=== PATIENT | female | born 1950 | race Caucasian/White ===

== ENCOUNTER 2025-07-03 09:46 | Outpatient (CLI) | payer MEDICARE, BC ==
--- NOTE | 2025-07-03 17:26 | CARDIOLOGY REPORT ---
APPROVED REPORT EXAM: Comprehensive 2D, Doppler, and color-flow Echocardiogram. Patient Location: OUT-PATIENT Blood Pressure: 116 /66 mmHg Heart Rate: 68 bpm Rhythm: SINUS Indications CONGETIVE HEART FAILURE Hospice Care Consultant: NONE Previous echo: NONE 2D Dimensions RVDd 2.7 cm LA Minor 3.8 cm LVOT Diameter 1.90 (1.8-2.4cm) Ao Asc Diam. 3.21 cm M-Mode Dimensions Left Atrium(MM) 3.72 (2.5-4.0cm) IVSd 0.75 (0.7-1.1cm) LVDd 4.36 (4.0-5.6cm) Aortic Root 2.81 (2.2-3.7cm) PWd 0.70 (0.7-1.1cm) Aortic Cusp Exc 1.73 (1.5-2.0cm) IVSs 1.52 cm MV EPSS 0.3 (<0.5cm) LVDs 2.60 (2.0-3.8cm) FS (%) 40 % PWs 1.24 cm ESV(Teich) 24.6 ml LVEF(%) 71 (>50%) Aortic Valve AoV Peak Italo. 145.3 cm/s AoV VTI 30.9 cm AO Peak GR. 8.0 mmHg AO Mean GR. 5 mmHg LVOT VTI 23.76 cm LVOT Peak Italo. 112.3 cm/s BARBARA (VMAX) 2.20 cm2 BARBARA (VTI) 2.18 cm2 Mitral Valve MV E Velocity 82.9 cm/s MV DECEL TIME 162 ms MV A Velocity 103.1 cm/s MV PHT 67 ms E/A Ratio 0.8 MVA (PHT) 3.30 cm2 TDI E/Medial E' 8.8 Tricuspid Valve TR P. Velocity 215 cm/s RAP ESTIMATE 10 mmHg TR Peak Gr. 19 mmHg RVSP 29 mmHg Pulmonary Vein S2 Velocity 55.38 cm/s PVa Duration 83 msec LEFT VENTRICLE Normal LV size and wall thickness. Overall systolic function is normal. Overall LVEF is 65-70%. GLS - 20.1%. RIGHT VENTRICLE RV is normal size and function. ATRIA The left atrium size is normal. AORTIC VALVE Trileaflet AV appears minimally sclerotic without stenosis. ? Trivial insufficiency. MITRAL VALVE Normal MV annulus without stenosis. Trace regurgitation. TRICUSPID VALVE TV appears structurally normal with trace regurgitation. PULMONIC VALVE Normal PV without stenosis, physiologic insufficiency. GREAT VESSELS Aortic root is normal in size. Normal appearing arch with normal flow velocities. Ascending aorta is normal in size. PERICARDIUM Normal pericardium. No effusion. Other Information Study Quality: Adequate Conclusion Overall LVEF is 65-70%. GLS - 20.1%. Normal LV size and wall thickness. Overall systolic function is normal. RV is normal size and function. Trileaflet AV appears minimally sclerotic without stenosis. ? Trivial insufficiency. Normal MV annulus without stenosis. Trace regurgitation. TV appears structurally normal with trace regurgitation. Normal PV without stenosis, physiologic insufficiency. Normal pericardium. No effusion.
== END 2025-07-03 23:59 | disposition home or self-care (01) ==
LOC: CARD DIAG 09:46
PROVIDERS: ATTEND Nurse Practitioner Adult Health
DX: I50.9 Heart failure, unspecified (principal); I20.0 Unstable angina
CPT/HCPCS: 93306